=== PATIENT | male | born 1950 | race Hispanic/Latino ===

== ENCOUNTER 2018-03-01 07:37 | Outpatient (RCR) | payer MEDICARE ==
[~2018-03-01 07:37] MED LIST: LIDOCAINE VISC 2% SOLN 15 ML UDC ONE
[2018-03-01] MEDS ORDERED: LIDOCAINE VISC 2% SOLN 15 ML UDC ONE (11:33)
== END 2018-03-04 ==
LOC: WCC 07:37
PROVIDERS: ATTEND Podiatrist Foot & Ankle Surgery
DX: E11.621 Type 2 diabetes mellitus with foot ulcer (principal); E11.8 Type 2 diabetes mellitus with unspecified complications; L97.422 Non-pressure chronic ulcer of left heel and midfoot with fat layer exposed; I89.0 Lymphedema, not elsewhere classified; G99.0 Autonomic neuropathy in diseases classified elsewhere; M17.9 Osteoarthritis of knee, unspecified; I69.998 Other sequelae following unspecified cerebrovascular disease; I10 Essential (primary) hypertension; E78.5 Hyperlipidemia, unspecified; H40.9 Unspecified glaucoma

== ENCOUNTER → 2018-03-21 | Outpatient (CLI) | payer MEDICARE ==
[2018-03-21 08:19] LABS: BLOOD UREA NITROGEN 9 mg/dL (7-26); BUN/CREATININE RATIO 13 (6-25); CREATININE, SERUM 0.69 mg/dL (0.72-1.25); EST GLOMERULAR FILTRATION RATE > 60 ML/MIN (60-)
--- NOTE | 2018-03-22 12:18 | Diagnostic Imaging Report ---
PROCEDURE: CT ABDOMEN AND PELVIS WITH CONTRAST TECHNIQUE: The abdomen and pelvis were scanned utilizing a multidetector helical scanner from the diaphragm to the lesser trochanter after the IV administration of 100 cc of Isovue 370 and the oral administration of 900 cc of water. Coronal and sagittal multiplanar reformations were obtained. COMPARISON: None. INDICATIONS: stomach pain for 6-8 months FINDINGS: LOWER THORAX: Subsegmental atelectasis at the lung bases. There is a dependent subpleural rounded opacity in the right lower lobe, measuring up to 3.4 cm with mild volume loss. No evidence of pleural thickening or pleural effusion. HEPATOBILIARY: No focal hepatic lesions. No biliary ductal dilatation. Gallbladder is mildly distended without evidence of radiopaque stone. SPLEEN: No splenomegaly. PANCREAS: No focal masses or ductal dilatation. ADRENALS: No adrenal nodules. KIDNEYS/URETERS: No hydronephrosis, stones, or solid mass lesions. Subcentimeter hypodensity in the right kidney is too small to characterize, but likely represents a cyst. PELVIC ORGANS/BLADDER: Unremarkable. PERITONEUM / RETROPERITONEUM: No free air or fluid. LYMPH NODES: No lymphadenopathy. VESSELS: Scattered atherosclerotic calcifications in the abdominal aorta and branch vessels. GI TRACT: No distention or wall thickening. BONES AND SOFT TISSUES: Partially seen thoracolumbar fixation hardware extending from the thoracic spine to L1. There is grade 2 anterolisthesis of T9 on T10, of unclear chronicity, with associated moderate narrowing of the central canal. Streak artifact limits evaluation. The visualized hardware appears intact. Old healed fracture deformity in the right lateral sixth rib. IMPRESSION: No acute findings in the abdomen or pelvis. Right lower lobe subpleural opacity is indeterminate but may represent an area of rounded atelectasis or consolidation. A follow-up chest CT is suggested in 6-8 weeks to assess for resolution. Partially visualized thoracolumbar fixation hardware. Grade 2 anterolisthesis of T9 on T10 with associated moderate narrowing of the central canal, of unclear chronicity. Correlation with any prior imaging is suggested. Dictated by: AILEEN DAVIS M.D. on 03/21/2018 at 9:26 Electronically approved by: AILEEN DAVIS M.D. on 03/21/2018 at 9:26
== END ==
LOC: CT 07:25
PROVIDERS: ATTEND Emergency Medicine
DX: R10.9 Unspecified abdominal pain (principal)
CPT/HCPCS: 36415; 74177; 82565; 84520

== ENCOUNTER 2018-03-22 12:38 | Outpatient (RCR) | payer MEDICARE ==
[2018-03-22] MEDS ORDERED: MINERAL OIL/PETROLAT/GLYCERI 2OZ CRM ONE (15:02)
== END 2018-04-03 ==
LOC: WCC 12:38
PROVIDERS: ATTEND Podiatrist Foot & Ankle Surgery
DX: E11.621 Type 2 diabetes mellitus with foot ulcer (principal); E11.8 Type 2 diabetes mellitus with unspecified complications; L97.422 Non-pressure chronic ulcer of left heel and midfoot with fat layer exposed; I89.0 Lymphedema, not elsewhere classified; G99.0 Autonomic neuropathy in diseases classified elsewhere; I10 Essential (primary) hypertension; E78.5 Hyperlipidemia, unspecified; I69.998 Other sequelae following unspecified cerebrovascular disease; H40.9 Unspecified glaucoma; M17.9 Osteoarthritis of knee, unspecified

== ENCOUNTER 2018-04-12 08:52 | Outpatient (RCR) | payer MEDICARE | END 2018-05-04 | LOC: WCC 08:52 | PROVIDERS: ATTEND Podiatrist Foot & Ankle Surgery | DX: E11.621 Type 2 diabetes mellitus with foot ulcer (principal); E11.8 Type 2 diabetes mellitus with unspecified complications; L97.422 Non-pressure chronic ulcer of left heel and midfoot with fat layer exposed; I69.998 Other sequelae following unspecified cerebrovascular disease; I89.0 Lymphedema, not elsewhere classified; G99.0 Autonomic neuropathy in diseases classified elsewhere; I10 Essential (primary) hypertension; E78.5 Hyperlipidemia, unspecified; H40.9 Unspecified glaucoma; M17.9 Osteoarthritis of knee, unspecified ==

== ENCOUNTER → 2021-04-15 | Outpatient (CLI) | payer MEDICARE | LOC: CT 15:53 | PROVIDERS: ATTEND Emergency Medicine | DX: R10.9 Unspecified abdominal pain (principal) | CPT/HCPCS: 74176 ==